=== PATIENT | female | born 1950 | race Caucasian/White ===

== ENCOUNTER 2018-10-12 19:12 | Emergency (ER) | payer OTHER, MEDICARE ==
[~2018-10-12] VITALS: Ht 165.1 cm; Wt 67.6 kg
[2018-10-12 20:12] LABS: ABSOLUTE NEUTROPHILS 5.2 thou/uL (1.4-8.2); BASOPHILS 0.7 % (0.0-2.0); EOSINOPHILS 2.2 % (0.0-3.0); HEMATOCRIT 43.3 % (37.0-47.0); HEMOGLOBIN 14.9 gm/dL (12.0-15.0); LYMPHOCYTES 15.6 % (24.0-44.0); MCH 31.6 pg (26.0-34.0); MCHC 34.5 g/dL (28.0-37.0); MCV 91.6 fL (80.0-100.0); MONOCYTES 7.8 % (1.0-8.0); PLATELET COUNT 279 thou/uL (150-400); POLYS 73.7 % (36.0-66.0); RBC 4.73 mil/uL (4.20-5.00); RDW 13.1 % (10.5-14.5); WBC 7.1 thou/uL (4.0-11.0)
[2018-10-12 20:12] LABS: URINE BILIRUBIN NEGATIVE (Negative); URINE BLOOD NEGATIVE (Negative); URINE CLARITY CLEAR; URINE COLOR YELLOW; URINE GLUCOSE-RANDOM* NEGATIVE (Negative); URINE KETONES TRACE (Negative); URINE LEUKOCYTES 1+ (Negative); URINE NITRITE NEGATIVE (Negative); URINE PROTEIN (DIPSTICK) NEGATIVE (Negative); URINE UROBILINOGEN 0.2 E.U./dl (0.2-1.0)
[2018-10-12 20:20] LABS: BACTERIA 1-9 Few /HPF (None Seen); MUCUS 0-3 Light strn/LPF (None Seen); SQUAMOUS 0-3 Few /LPF (0-3); URINE RBC None Seen /HPF (0-2); URINE WBC 6-15 Few /HPF (0-5)
[2018-10-12 20:21] LABS: CASTS None Seen /LPF (None Seen); CRYSTALS None Seen /LPF (None Seen)
[2018-10-12 20:31] LABS: CALCIUM 9.6 mg/dL (8.5-10.1)
[2018-10-12 20:37] LABS: ALBUMIN 4.1 g/dL (3.4-5.0); DIRECT BILIRUBIN 0.1 mg/dL (<0.1-0.3); TOTAL BILIRUBIN 1.1 mg/dL (<0.1-1.0); TOTAL PROTEIN 7.8 g/dL (6.4-8.2)
[2018-10-12 20:39] LABS: POTASSIUM 3.8 mmol/L (3.5-5.1)
[2018-10-12] MEDS ORDERED: KEFLEX500 M1 PO (21:44)
[2018-10-12] MEDS ORDERED: ONDANSETRON HCL4 M2 PO (21:44)
[2018-10-12] MEDS ORDERED: LISINOPRIL-HCT1 EACH PO (21:49)
[2018-10-12] MEDS ORDERED: OMEPRAZOLE40 MG PO (21:50)
[2018-10-12 21:52] VITALS: BP 137/79
== END 2018-10-12 22:05 | disposition home or self-care (01) ==
LOC: ER 19:12
PROVIDERS: Nurse Practitioner
DX: N39.0 Urinary tract infection, site not specified (principal); R19.7 Diarrhea, unspecified; I10 Essential (primary) hypertension; K21.9 Gastro-esophageal reflux disease without esophagitis

== ENCOUNTER 2019-03-17 00:57 | Emergency (ER) | payer OTHER, MEDICARE ==
[~2019-03-17] VITALS: Ht 165.1 cm; Wt 63.5 kg
[~2019-03-17 00:57] MED LIST: KEFLEX500 M1 PO; LISINOPRIL-HCT1 EACH PO; OMEPRAZOLE40 MG PO; ONDANSETRON HCL4 M2 PO
[2019-03-17 01:37] LABS: ABSOLUTE NEUTROPHILS 6.9 thou/uL (1.4-8.2); BASOPHILS 0.4 % (0.0-2.0); EOSINOPHILS 0.1 % (0.0-3.0); HEMATOCRIT 46.2 % (37.0-47.0); HEMOGLOBIN 15.6 gm/dL (12.0-15.0); LYMPHOCYTES 10.8 % (24.0-44.0); MCH 31.6 pg (26.0-34.0); MCHC 33.8 g/dL (28.0-37.0); MCV 93.4 fL (80.0-100.0); MONOCYTES 6.8 % (1.0-8.0); PLATELET COUNT 319 thou/uL (150-400); POLYS 81.9 % (36.0-66.0); RBC 4.94 mil/uL (4.20-5.00); RDW 12.7 % (10.5-14.5); WBC 8.4 thou/uL (4.0-11.0)
[2019-03-17 01:52] LABS: CALCIUM 10.3 mg/dL (8.5-10.1); CREATININE 1.2 mg/dL (0.6-1.0); POTASSIUM 3.7 mmol/L (3.5-5.1)
[2019-03-17 01:57] LABS: TOTAL BILIRUBIN 1.6 mg/dL (<0.1-1.0)
[2019-03-17 06:36] VITALS: BP 138/78
== END 2019-03-17 06:37 | disposition short-term general hospital (02) ==
LOC: ER 00:57
PROVIDERS: Emergency Medicine
DX: K56.609 Unspecified intestinal obstruction, unspecified as to partial versus complete obstruction (principal); R11.10 Vomiting, unspecified; I10 Essential (primary) hypertension; K21.9 Gastro-esophageal reflux disease without esophagitis; Z85.41 Personal history of malignant neoplasm of cervix uteri

== ENCOUNTER 2020-03-08 09:41 | Emergency (ER) | payer OTHER, MEDICARE ==
[~2020-03-08] VITALS: Ht 162.6 cm; Wt 61.2 kg
[2020-03-08] MEDS ORDERED: MONTELUKAST SODI4 M1 PO (09:53)
--- NOTE | 2020-03-08 09:53 | EKG ---
[facility] [place] [address] ELECTROCARDIOGRAM REPORT Name: XU PATINO Room #: [facility].#: [id number] Admission: Attend Phys: Discharge: Date of : 50 Report #: [id number] THIS REPORT FOR: cc: Sho Flores MD, Carrie W. MD Santiago, Patrick MD [facility] ~ THIS REPORT FOR: //name// [facility] ED Test Date: 2020-03-08 Test Time: 09:43:47 Pat Name: XU PATINO Department: Room: Gender: F Biomedical Equipment Specialist: SILVANA : 1950 Requested By: Mayo Liao Order Number: [id number] MD: Miky Cooper Measurements Intervals Homer Rate: 60 P: 17 MA: 175 QRS: 4 QRSD: 82 T: 35 QT: 408 QTc: 408 Interpretive Statements Sinus rhythm Anteroseptal infarct, age indeterminate No previous ECG available for comparison Electronically Signed On 03-08-2020 9:52:50 CIRCULATION CLERK by Miky Cooper [email or web address] <ELECTRONICALLY SIGNED> By: Miky Cooper MD, FAC 03/08/20 0952 0943 2 Miky Cooper MD, FACC /EPI
[2020-03-08 10:23] LABS: ABSOLUTE NEUTROPHILS 5.9 thou/uL (1.4-8.2); BASOPHILS 0.5 % (0.0-2.0); EOSINOPHILS 0.7 % (0.0-3.0); HEMATOCRIT 39.3 % (37.0-47.0); HEMOGLOBIN 13.4 gm/dL (12.0-15.0); LYMPHOCYTES 11.3 % (24.0-44.0); MCHC 34.2 g/dL (28.0-37.0); MCV 93.6 fL (80.0-100.0); MONOCYTES 6.1 % (1.0-8.0); PLATELET COUNT 302 thou/uL (150-400); POLYS 81.4 % (36.0-66.0); RBC 4.19 mil/uL (4.20-5.00); RDW 12.5 % (10.5-14.5); WBC 7.3 thou/uL (4.0-11.0)
[2020-03-08 10:36] LABS: ANION GAP 12 mmol/L (7-16); BUN 19 mg/dL (7-18); CALCIUM 8.9 mg/dL (8.5-10.1); CHLORIDE 104 mmol/L (98-107); CO2 25 mmol/L (21-32); CREATININE 1.1 mg/dL (0.6-1.0); GLUCOSE 128 mg/dL (74-106); POTASSIUM 4.2 mmol/L (3.5-5.1); SODIUM 141 mmol/L (136-145)
[2020-03-08 10:47] LABS: ALBUMIN 3.8 g/dL (3.4-5.0); LIPASE 141 U/L (73-393); SGOT 22 U/L (15-37); SGPT 22 U/L (30-65); TOTAL BILIRUBIN 0.8 mg/dL (0.2-1.0); TOTAL PROTEIN 7.4 g/dL (6.4-8.2); TROPONIN-I <0.06 ng/mL (<0.06)
[2020-03-08 14:49] VITALS: BP 127/66
== END 2020-03-08 14:50 | disposition home or self-care (01) ==
LOC: ER 09:41
PROVIDERS: Emergency Medicine
DX: R07.89 Other chest pain (principal); K80.20 Calculus of gallbladder without cholecystitis without obstruction; I10 Essential (primary) hypertension; K21.9 Gastro-esophageal reflux disease without esophagitis; Z79.899 Other long term (current) drug therapy

== ENCOUNTER 2020-03-23 18:50 | Inpatient (IN) | payer OTHER, MEDICARE ==
[~2020-03-23] VITALS: Ht 162.6 cm; Wt 62.0 kg
--- NOTE | ~2020-03-23 | O ---
[facility] [place] [address] OPERATIVE REPORT Name: XU PATINO Room #: 441-P ADM IN M.R.#: [id number] Admission: 03/23/20 Attend Phys: Bucky Donahue MD Discharge: Date of : 50 Report #: [id number] THIS REPORT FOR: cc: Sho Flores MD,Mesfin Victor MD, MD ~ CC: Sho Donahue DATE OF SERVICE: 03/26/2020 PREOPERATIVE DIAGNOSES: Gallstone pancreatitis. POSTOPERATIVE DIAGNOSES: Gallstone pancreatitis. OPERATION: Laparoscopic cholecystectomy. SURGEON: Mesfin Nicholson MD ANESTHESIA: General. ESTIMATED BLOOD LOSS: 10 mL. SPECIMEN: Gallbladder. DESCRIPTION OF PROCEDURE: After informed consent was obtained, the patient was brought to the operating room and placed supine. SCDs were placed and working, preoperative antibiotics were administered, general anesthesia was induced. The abdomen was prepped and draped in the usual sterile fashion. A 10 mm incision was made below the umbilicus. Fascia was incised and a trocar was placed. Pneumoperitoneum was established. Three right upper quadrant 5 mm ports were placed. Gallbladder was grasped at the fundus and retracted cephalad. Infundibulum was grasped and retracted laterally. I dissected out the cystic duct and cystic artery. I dissected out the cystic plate. The cystic duct and artery were clipped and ligated leaving 2 clips on the remaining duct and one on the remaining artery. Gallbladder was then taken off the liver bed with electrocautery. It was placed into an Endopouch and removed. The fascia was then closed with a [id number] 0 Vicryl. Skin was closed with 4-0 Monocryl. Incisions were sealed with Dermabond. COMPLICATIONS: None. [facility] [address] [place] [address] OPERATIVE REPORT Name: XU PATINO Room #: 441-P [facility]#: [id number] Admission: 03/23/20 Attend Phys: Bucky Donahue MD Discharge: Date of : 50 Report #: [id number] DISPOSITION: The patient was taken to recovery in satisfactory condition. By: 1351 1415 Mesfin Nicholson MD /nt
[~2020-03-23 18:50] MED LIST changes: +MONTELUKAST SODI4 M1 PO
[2020-03-23 19:05] VITALS: BP 125/53
[2020-03-23 20:38] LABS: CALCIUM 9.7 mg/dL (8.5-10.1); CREATININE 1.7 mg/dL (0.6-1.0); POTASSIUM 3.6 mmol/L (3.5-5.1)
[2020-03-23 20:50] LABS: ALBUMIN 4.3 g/dL (3.4-5.0); TOTAL PROTEIN 8.6 g/dL (6.4-8.2)
[2020-03-23 21:10] LABS: HEMATOCRIT 41.1 % (37.0-47.0); HEMOGLOBIN 13.7 gm/dL (12.0-15.0); MCH 31.9 pg (26.0-34.0); MCHC 33.4 g/dL (28.0-37.0); MCV 95.6 fL (80.0-100.0); PLATELET COUNT 320 thou/uL (150-400); RDW 13.2 % (10.5-14.5); WBC 15.5 thou/uL (4.0-11.0)
[2020-03-23 21:57] LABS: ABSOLUTE NEUTROPHILS 14.3 thou/uL (1.4-8.2); ANISOCYTOSIS 1+
[2020-03-23 22:03] LABS: URINE BILIRUBIN 2+ (Negative); URINE BLOOD NEGATIVE (Negative); URINE CLARITY CLEAR; URINE COLOR YELLOW; URINE GLUCOSE-RANDOM* NEGATIVE (Negative); URINE KETONES NEGATIVE (Negative); URINE LEUKOCYTES-REFLEX NEGATIVE (Negative); URINE NITRITE-REFLEX NEGATIVE (Negative); URINE PROTEIN (DIPSTICK) TRACE (Negative); URINE SPECIFIC GRAVITY 1.015 (1.005-1.035); URINE UROBILINOGEN 0.2 E.U./dl (0.2-1.0)
[2020-03-24] MEDS ORDERED: MULTIVITAMINS1 EAC7 PO (00:43)
[2020-03-24] MEDS ORDERED: VIT B 12 PO (00:43)
[2020-03-24 01:22] VITALS: BP 126/72
[2020-03-24 02:14] VITALS: BP 130/81
--- NOTE | 2020-03-24 04:55 | NUR ---
PT WAS ADMITTED TO THE UNIT FROM THE ER IN A STABLE CONDITION.PT C/O GEN ABD PAIN,MANAGED WITH MED.ADMISSION EDUCATION,HX AND ASSESSMENT COMPLETED.PT NPO SINCE ADMIT.PT CONT WITH IVF AND IV ABX ORDERED.PT SLEEPING ON HER BED AT THIS TIME.CALL LIGHT WITHIN REACH.
[2020-03-24 05:39] LABS: HEMATOCRIT 39.8 % (37.0-47.0); HEMOGLOBIN 13.6 gm/dL (12.0-15.0); MCH 32.6 pg (26.0-34.0); MCHC 34.1 g/dL (28.0-37.0); MCV 95.5 fL (80.0-100.0); RBC 4.16 mil/uL (4.20-5.00); RDW 13.3 % (10.5-14.5); WBC 8.1 thou/uL (4.0-11.0)
[2020-03-24 06:02] LABS: ALBUMIN 3.4 g/dL (3.4-5.0); CALCIUM 7.9 mg/dL (8.5-10.1); CREATININE 2.1 mg/dL (0.6-1.0); POTASSIUM 3.9 mmol/L (3.5-5.1); TOTAL BILIRUBIN 7.1 mg/dL (0.2-1.0)
[2020-03-24 07:53] VITALS: BP 122/80
--- NOTE | 2020-03-24 08:40 | NUR ---
ASSESSMENT: CM REVIEWED CHART. PT IS ADMITTED DUE TO GALLSTONE/PANCREATITIS. PT REPORTS LIVING IN A HOUSE WITH HER . PT REPORTS 2-3 STEPS TO ENTER AND HAS SOMETHING TO HOLD ONTO WHEN ENTERING THE HOME BUT NO HANDRAIL. PT REPORTS ONCE INSIDE SHE HAS STEPS TO THE UPPER LEVEL BUT REPORTS SHE CAN FULLY LIVE ON THE MAIN LEVEL IF NEEDED. PT REPORTS SHE HAS A CANE AT HOME SHE USES OCCASIONALLY. PT REPORTS NO HX OF HH OR SNF. PT IS ON IX ANBX AND DR. GUPTA IS CONSULTED. CM WILL COTNINUE TO FOLLOW TO ASSIST NEEDED.
--- NOTE | 2020-03-24 10:11 | NUR ---
ASSUMED CARE AT 0700. PATIENT IS ALERT AND ORIENTED X4. 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 LUNGS ARE CLEAR. 02 AT 2L PER N/C. 02 SAT 91-92%. ABD IS SOFT WITH BSX4. PATIENT HAVING SEVERE ABD PAIN. DR. NAILS HERE TO SEE PATIENT. PLAN FOR MRCP LATER TODAY. GI CONSULTED. PATIENT REMAINS NPO. FALL AND SAFETY PROTOCOLS IN PLACE. C/O ABD PAIN. MEDICATED WITH PRN PAIN MED , AND ANTIEMETIC. AT BEDSIDE. IV FLUIDS OF NS INFUSING AT 125CC/HR PER RAC IV. IV SITE WITHOUT REDNESS OR SWELLING. PATIENT CONTINUES ON IV ABT AND IS TOLERATING THEM WITHOUT ADVERSE AFFECTS. WILL CONTINUE TO MONITER.
[2020-03-24 16:59] VITALS: BP 128/75
[2020-03-24 19:29] VITALS: BP 105/67
[2020-03-25 03:38] LABS: HEMATOCRIT 36.4 % (37.0-47.0); HEMOGLOBIN 12.3 gm/dL (12.0-15.0); MCHC 33.6 g/dL (28.0-37.0); MCV 95.1 fL (80.0-100.0); RBC 3.83 mil/uL (4.20-5.00); RDW 13.3 % (10.5-14.5); WBC 9.2 thou/uL (4.0-11.0)
[2020-03-25 03:42] VITALS: BP 104/57
[2020-03-25 04:14] LABS: ALBUMIN 2.6 g/dL (3.4-5.0); CALCIUM 6.6 mg/dL (8.5-10.1); CREATININE 1.3 mg/dL (0.6-1.0); POTASSIUM 3.3 mmol/L (3.5-5.1); TOTAL BILIRUBIN 3.5 mg/dL (0.2-1.0); TOTAL PROTEIN 5.9 g/dL (6.4-8.2)
[2020-03-25 07:00] VITALS: BP 110/65
--- NOTE | 2020-03-25 07:50 | NUR ---
ASSUMED PT CARE AT 1900.PT WAS IN PAIN AFTER SHIFT CHANGE,PAIN MED GIVEN.PT UP WITH SBA TO THE BSC.PT ON CLEAR LIQUIDS PER REPORT,SERGIO WELL.PT HAS BEEN NPO SINCE MN.PT CONT ON O2 @2L/NC.REPORT TO AM NURSE.
--- NOTE | 2020-03-25 14:05 | NUR ---
ASSUMED CARE OF PT AT 0700. PT IS A&OX4 AND VITAL SIGNS ARE STABLE. PT REPORTS INTERMITTENT ABDOMINAL PAIN THAT IS SHARP, BUT IS OVERALL WELL CONTROLLED ON CURRENT MEDICATIONS. ORDERS FOR ERCP THIS SHIFT. PT RETURNED TO UNIT FOLLOWING PROCEDURE AT 1300. PT RESTING IN BED WITH SPOUSE AT THE BEDSIDE. PT REPORTS SIGNIFICANT RELIEF FOLLOWING PROCEDURE. PT ON CLEAR LIQUIDS AT THIS TIME AND TOLERATING WELL. LOW POTASSIUM THIS SHIFT, IV REPLACEMENT ORDERED AT THIS TIME. PT ON 3L O2 WITH SATS AROUND 93%. FALL PRECAUTIONS IN PLACE AND NURSING WILL CONTINUE TO MONITOR.
--- NOTE | 2020-03-25 15:26 | NUR ---
ON-GOING ASSESSMENT: CM REVIEWED CHART AND SPOKE WITH ATTENDING. PT HAD ERCP TODAY. PHYSICAL THEARPY ATTEMPTED TO MEET WITH PATIENT BUT SHE IS STILL LOOPY FROM PROCEDURE AND THEY WILL FOLLOW UP TOMORROW. PT IS FROM HOME WITH HER WHERE SHE WAS INDEPENDENT PRIOR TO ADMISSION. PT DOES NOT ANTICIPATE HAVING ANY NEEDS AT DISCHARGE. CM WILL CONTINUE TO FOLLOW.
[2020-03-25 20:00] VITALS: BP 77/33
[2020-03-26] VITALS (9 sets, daily range): BP systolic 100–125; BP diastolic 56–86
--- NOTE | 2020-03-26 04:13 | NUR ---
PT DENID N/V SO FAR.PT UP WITH SBA TO BSC.PT RATED PAIN AT 2,REF MED.PT'S URINE DRK YELLOW ,PT ENCOURAGED TO INCREASE PO FLUIDS.PT CONT ON 2L/NC.PT NPO SINCE MN FOR LAP GRETEL LATER IN THE DAY.PT ABLE TO MAKE HER NEEDS KNOWN.CALL LIGHT WITHIN REACH.
[2020-03-26 05:43] LABS: HEMATOCRIT 31.5 % (37.0-47.0); HEMOGLOBIN 10.6 gm/dL (12.0-15.0); MCH 32.3 pg (26.0-34.0); MCHC 33.6 g/dL (28.0-37.0); MCV 96.2 fL (80.0-100.0); RBC 3.28 mil/uL (4.20-5.00); RDW 13.3 % (10.5-14.5); WBC 8.6 thou/uL (4.0-11.0)
[2020-03-26 06:23] LABS: ALBUMIN 2.2 g/dL (3.4-5.0); CALCIUM 6.4 mg/dL (8.5-10.1); POTASSIUM 3.1 mmol/L (3.5-5.1); TOTAL BILIRUBIN 2.8 mg/dL (0.2-1.0); TOTAL PROTEIN 5.6 g/dL (6.4-8.2)
--- NOTE | 2020-03-26 11:05 | NUR ---
ASSUMED CARE AT 0700. PT IS A&O X4. PT HAS IV ON R. AC AND SHOWS SIGNS OF REDNESS BUT NO SWELLING OR PAIN. PT SAID THAT IT WAS ALWAYS LIKE THIS AND SHE DOES NOT HAVE ANY PAIN AND STILL GETTING MEDICATION THROUGH THE IV. PT DIDNT COMPLAIN OF PAIN AROUND 7 AM BUT IS NOW (11 AM) ASKING FOR PAIN MEDICAITON. PT HAS A SOFT
--- NOTE | 2020-03-26 17:21 | NUR ---
pt came back to surgery around 1500. pt denies pain, n/v. pt lap sites were bleeding and put bandage and transparent dressing over site. will continue to monitor for bleeding.
--- NOTE | 2020-03-27 00:25 | NUR ---
PATIENT ALERT AND ORIENTED X4. UP TO BSC WITH SBA. IVF INFUSING W/O COMPLICATION. INCISION TO RIGHT LOWER ABD IS DRAINING SEROSANGUINOUS FLUID AT TIMES. DRESSING NO SATURATED AT TIME OF NOTE. RT STATED THAT HER OXYGEN LEVEL PER NASAL CANNULA WAS INCREASED TO 6 LITERS AT SHIFT CHANGE. THIS NURSE RECHECKED 02 SAT AT 2200 WHICH WAS 94% ON 6LNC. PATIENT RESTING COMFORTABLY WITH NO SOA NOTED. WILL MONITOR.
--- NOTE | 2020-03-27 04:54 | NUR ---
PATIENT HAS BEEN UP TO BSC WITH SBA. MODERATE BROWN LIQUID STOOL. DRESSING REPLACED TO RIGHT LOWER INCISION ON ABDOMEN DUE TO SEROSANG. DRAINAGE. WILL MONITOR. RESTING QUIETLY WITH 02NC 6L.
[2020-03-27 07:23] VITALS: BP 103/74
[2020-03-27 10:22] LABS: HEMATOCRIT 27.1 % (37.0-47.0); HEMOGLOBIN 9.2 gm/dL (12.0-15.0); MCH 32.5 pg (26.0-34.0); MCV 95.6 fL (80.0-100.0); PLATELET COUNT 225 thou/uL (150-400); RBC 2.84 mil/uL (4.20-5.00); RDW 13.5 % (10.5-14.5); WBC 7.6 thou/uL (4.0-11.0)
[2020-03-27 10:40] LABS: CALCIUM 6.7 mg/dL (8.5-10.1); TOTAL BILIRUBIN 1.2 mg/dL (0.2-1.0); TOTAL PROTEIN 5.6 g/dL (6.4-8.2)
--- NOTE | 2020-03-27 11:33 | NUR ---
ASSUMED CARE AT 0700. PT IS A&O X4. PT DENIES ANY PAIN, N/V/D. PT HAD A BM THIS AM. PT WAS ON 6 LITERS OF OXYGEN BUT AFTER WORKING WITH RT, SHE IS NOW ON 2 L OF OXYGEN AND TOLERATING WELL AT 94%. VSS. THE LAP SITE ON ABD ON THE LLQ HAS BEEN BLEEDING. NOT ALOT OF BLOOD BUT GETS SATURATED WITH GAUZE AND TRANSPARENT DRESSING AFTER 4 HOURS. WILL CONTINUE TO MONITOR AND CHANGE THE GAUZE EVERY 4 HOURS UNTIL BLEEDING IS UNCONTROLLED. SCD HOSE ARE IN PLACE. PT HAS BEEN BRUISES FROM IV RIGHT AC; HOWEVER PT SAYS THAT THE BRUISES HAVE BEEN GOING DOWN SINCE YESTERDAY. IV ON LEFT FOREARM HAS BEEN D/C DUE TO FLUIDS COMING OUT OF IV. WILL ADMINISTER NEW IV FOR PATIENT AND WILL CONTINUE TO MONITOR. ADEQUATE NUTRITIION. PT HAS DRY NONPRODUCTIVE COUGH AND PT SAYS THAT IS NORMAL IT RELATED TO HER ALLERGIES.
[2020-03-27 12:17] LABS: ABSOLUTE NEUTROPHILS 6.5 thou/uL (1.4-8.2)
[2020-03-27 12:19] LABS: ANISOCYTOSIS SLIGHT
[2020-03-27 15:08] VITALS: BP 120/62
[2020-03-27 19:10] VITALS: BP 124/73
[2020-03-28 04:30] VITALS: BP 113/76
--- NOTE | 2020-03-28 05:23 | NUR ---
PATIENT ALERT AND ORIENTED X4. HAS BEEN NPO SINCE 03/27/20 AT 23:59. 2LNC PER ORDER. PLEASANT AND COOPERATIVE. WILL HAVE AN ULTRA SOUND OF ABDOMEN TODAY. DRESSING TO ABDOMEN ON RIGHT SIDE DRAINING SEROSANG. FLUID - CHANGED X1 DURING THE NIGHT. TEMP OF 99.5 DURING THE NIGHT. MEDICATED FOR PAIN X2. WILL MONITOR.
[2020-03-28 05:36] LABS: HEMATOCRIT 28.8 % (37.0-47.0); HEMOGLOBIN 9.6 gm/dL (12.0-15.0); MCH 31.8 pg (26.0-34.0); MCHC 33.5 g/dL (28.0-37.0); MCV 94.9 fL (80.0-100.0); RBC 3.03 mil/uL (4.20-5.00); RDW 13.7 % (10.5-14.5); WBC 9.7 thou/uL (4.0-11.0)
[2020-03-28 05:57] LABS: CALCIUM 7.6 mg/dL (8.5-10.1)
[2020-03-28 06:04] LABS: POTASSIUM 2.7 mmol/L (3.5-5.1)
[2020-03-28 07:06] VITALS: BP 117/61
[2020-03-28] MEDS ORDERED: HYDROCODON-ACE1 EAC7 PO (08:52)
--- NOTE | 2020-03-28 09:15 | NUR ---
ORDERS FOR EVAL AND TREAT. Pt NOW POST SHRUTI MAJANO. SPOKE WITH Pt WHO STATE SHE IS HAVING NO DIFFICULTY WITH MOBILITY. OBSERVERED HER STAND AND AMBULATE IN ROOM SAFELY. Pt DECLINING FORMAL P.T. EVAL BUT APPEARS SAFE FOR HOME
--- NOTE | 2020-03-28 09:58 | NUR ---
on-going assessment: CM REVIEWED CHART AND SPOKE WITH ATTENDING. PT HAS ORDERS TO DISCHARGE HOME TODAY WITH NO NEEDS. PT HAS NO NEEDS FROM CM AND LIVES AT HOME WITH .
--- NOTE | 2020-03-28 12:05 | NUR ---
ASSUMED CARE AT 0700. PT IS A&0 X4. PT IS STILL COMPLAINING OF PAIN IN ABD WHEN MOVING AROUND. PT IS WALKING AROUND IN THE ROOM TO HELP RELIEF SOME PAIN. PT HAS NO IV AND DID NOT WANT IV TEAM TO COME IN AND GIVE HER IV. SPOKE WITH DOCTOR AND DOCTOR SUSY HAS OKAY FOR PO FOR POTASSIUM. POTASSIUM LEVEL WAS 2.7 AND WAS GIVEN PO POTASSIUM PILL. CALL LIGHT WITHIN REACH. PT IS TRYING TO WEAN OFF OXYGEN BEFORE SHE CAN BE D/C. PT DENIES ANY N/V/D. PT DOES NOT HAVE A FEVER DURING SHIFT. REGULAR DIET. DID A US IN THE AM AND DIDNT FIND ANYTHING. DISTENDED ABD. WILL CONTINUE TO MONITOR FOR DRESSING THAT WAS BLEEDING.
[2020-03-28 15:13] VITALS: BP 135/82
[2020-03-28 19:03] VITALS: BP 122/73
[2020-03-29 03:52] VITALS: BP 129/73
--- NOTE | 2020-03-29 03:58 | NUR ---
ASSESSED AT START OF SHIFT PT A&OX4. HAD 1 HUGE LIQUID STOOL. C/O NAUSEA AND VOMITING. ZOFRAN GIVEN 1 TIME EMESIS NOT. ABD DRESSING CHANGED AND INTACT. PT C/O PAIN 10/13 MANAGED WITH PO HYDROCODONE AFEBRILE THIS SHIFT. UP TO THE BATHROOM. FALL EDUCATION PROVIDED. CALL LIGHT AT REACH AND WILL CONT TO MONITOR.
[2020-03-29 05:42] LABS: HEMATOCRIT 26.4 % (37.0-47.0); HEMOGLOBIN 8.9 gm/dL (12.0-15.0); MCH 32.1 pg (26.0-34.0); MCHC 33.9 g/dL (28.0-37.0); MCV 94.9 fL (80.0-100.0); RBC 2.78 mil/uL (4.20-5.00); RDW 13.7 % (10.5-14.5); WBC 9.9 thou/uL (4.0-11.0)
[2020-03-29 05:57] LABS: CALCIUM 7.6 mg/dL (8.5-10.1); CREATININE 0.9 mg/dL (0.6-1.0)
[2020-03-29 06:12] LABS: POTASSIUM 2.9 mmol/L (3.5-5.1)
[2020-03-29 07:10] VITALS: BP 139/75
--- NOTE | 2020-03-29 13:44 | NUR ---
ON-GOING ASSESSMENT: CM REVIEWED CHART. PT IS STILL HAVING A FEVER AND IS ON 1-2L OF OXYGEN. PT ON ANTIBIOTIC AND NOT STABLE FOR DISCHARGE AT THIS TIME. POSSIBLE DISCHARGE HOME TOMORROW IF PT IMPROVES. CM WILL CONTINUE TO FOLLOW TO ASSIST NEEDED.
[2020-03-29 15:30] VITALS: BP 124/72
--- NOTE | 2020-03-29 16:54 | NUR ---
ASSUMED PT CARE THIS AM. PT HAS HAD A TEMPERATURE, GIVEN TYLENOL FOR TEMP, BUT IT CONTINUES TO REBOUND UPWARDS. MADE AWARE AND ORDERED LABS AND FLUIDS. PT AMBULATORY TO RESTROOM. LAP SITE DRESSINGS CHANGED THIS AM DUE TO SEROUS DRAINAGE. PT TOOK MEDS WITHOUT COMPLAINT. COMPLAINING OF NO PAIN DURING THE SHIFT, JUST ACHING IN THE STOMACH. REPORTED NAUSEA, GIVEN ZOFRAN AND RESPONDED WELL. PT HAS POOR APPETITE DURING THE SHIFT, ENCOURAGED TO DRINK FLUIDS.
[2020-03-29 19:26] VITALS: BP 142/83
[2020-03-30 05:08] VITALS: BP 109/60
--- NOTE | 2020-03-30 05:23 | NUR ---
PT CONTINUES TO STATE SHE DOES NOT FEEL THAT WELL. SHE APPEARS TO BE IN SOME MODERATE DISTRESS. ABDOMINAL LAP SITE TO RLQ LEAKING SOME YELLOWISH OUTPUT. CLEAN DRAIN SPONGE APPLIED AT THE START OF SHIFT. PT CONTINUES TO HAVE FEVER AND NAUSEA. SHE IS AMBULATING STEADILY TO THE BATHROOM, SHE IS ALSO USING I/S INTERMITTENTLY. SHE C/O GENERALISED ABDOMINAL PAIN WELL SWELLING/EDEMA.SHE HOLDS PILLOW ON THE TUMMY TO HELP EASE PAIN.RATES PAIN AT AROUND 6/10. SHE HAS BEEN TAKING POPSICLE AND SWAZI ICE. IVF INFUSING VIA RFA. NO VOMITING NOTED. CONTINUES ON /1.5L AND NEEDS IT TO KEEP SATS>90%.WILL CONTINUE WITH POC TILL E0S.
[2020-03-30 06:00] LABS: HEMATOCRIT 25.2 % (37.0-47.0); HEMOGLOBIN 8.6 gm/dL (12.0-15.0); MCH 31.9 pg (26.0-34.0); MCV 93.9 fL (80.0-100.0); RBC 2.69 mil/uL (4.20-5.00); RDW 13.6 % (10.5-14.5); WBC 12.6 thou/uL (4.0-11.0)
[2020-03-30 06:18] LABS: CALCIUM 7.8 mg/dL (8.5-10.1); CREATININE 0.8 mg/dL (0.6-1.0); POTASSIUM 3.3 mmol/L (3.5-5.1)
[2020-03-30 09:13] VITALS: BP 110/67
--- NOTE | 2020-03-30 10:36 | P ---
[facility] [place] [address] PROCEDURE REPORT Name: XU PATINO Room #: 441-P ADM IN .R.#: [id number] Admission: 03/23/20 Attend Phys: Bucky Donahue MD Discharge: Date of : 50 Report #: [id number] THIS REPORT FOR: cc: Sho Flores MD, Carrie W. MD McElhinney, Christian C. MD ~ CC: Sho Donahue MD DATE OF SERVICE: 03/25/2020 PROCEDURE PERFORMED: ERCP with sphincterotomy, sludge removal and balloon sweeps. HISTORY OF PRESENT ILLNESS: The patient is a 69-year-old female with abdominal pain, elevated liver function test and gallstone pancreatitis, underwent imaging initially with an ultrasound of the abdomen on the that showed cholelithiasis with tenderness over the gallbladder. The patient has been on IV antibiotics. Intrahepatic common bile duct was dilated at 9 mm. A MRCP was performed yesterday showing changes consistent with pancreatitis. No evidence of choledocholithiasis, cholelithiasis again noted. Her total bilirubin on admission was 9.0. It has now dropped to 3.5. Her liver function tests are trending down. Her lipase has improved, which is now 1726. Her white count is normal at this time, it was elevated at 15.5 on admission. Again, she has been on IV Zosyn. Her COVID test was negative. I had a long discussion with the patient today regarding her symptoms and workup to date. Agree with gallstone pancreatitis likely source or gallstones likely etiology of pancreatitis, even though there was no obvious stone on MRCP. Her bilirubin remains elevated and I would consider proceeding with ERCP for further evaluation as well as sphincterotomy. I explained the potential risks and benefits and she understood. DESCRIPTION OF PROCEDURE: The risks and benefits of the procedure were explained to the patient, those risks including but not limited to bleeding, perforation and the risk of sedation as well as the potential risk for post-ERCP pancreatitis. The patient understood these risks and gave informed consent. The procedure was performed in the Interventional Radiology suite under general anesthesia. The patient is on IV Zosyn already on a scheduled basis. A 50 mg indomethacin rectal suppository was given prior to the procedure. Next, using a standard Olympus ERCP side-viewing scope, the scope was placed in the patient's mouth and advanced under direct vision through the esophagus, stomach and into the second portion of the duodenum. The major papilla was identified, which was normal in appearance. Next, using a Armando-Cook 0.025 dome tipped sphincterotome catheter, the common bile duct was cannulated and a cholangiogram [address] [address] PROCEDURE REPORT Name: XU PATINO Room #: 441-P [facility]..#: [id number] Admission: 03/23/20 Attend Phys: Bucky Donahue MD Discharge: Date of : 50 Report #: [id number] was obtained. No obvious filling defects were noted. The common bile duct was mildly dilated. The intrahepatic ducts were normal. At this point, a guidewire was advanced into the intrahepatic ducts. Next, a sphincterotomy was performed without difficulty. Next the sphincterotome was removed. When I removed this, a small amount of sludge was removed after sphincterotomy. Next, the catheter was removed and a balloon catheter was advanced over the guidewire. Multiple balloon sweeps were then performed. A small amount of sludge was again noted with balloon sweeps, but no obvious stones. Next, a balloon occlusion cholangiogram was obtained. No filling defects were seen. At this point, the balloon and wire were removed. The scope was then withdrawn and the procedure terminated. The patient tolerated the procedure well. IMPRESSIONS: 1. Mildly dilated common bile duct. No obvious filling defects; however, after sphincterotomy, sludge was removed. 2. Normal intrahepatic ducts. RECOMMENDATIONS: 1. Observe the patient post-procedure. 2. Plan for laparoscopic cholecystectomy in the near future. Thank you for allowing me to participate in her care. <ELECTRONICALLY SIGNED> By: Devin Wellington MD 03/30/20 1036 1208 0815 Devin Wellington MD /nt
--- NOTE | 2020-03-30 13:36 | NUR ---
Nutrition: pt seen for LOS. Admitted with gallstone pancreatitis, choledocholelithiasis. POD 4 Lap choly. Lipase now WNL. Was eating well prior to surgery but since po has been down. Reports nausea. Doing better since started choosing own meals. Still with significant abdominal pain and reports distenstion. S/P CT abdomen/pelvis this am. + BMS. On regular diet, will not restrict further but did review low fat diet post choly with pt-voiced understanding. Weights have been stable. Follow for improved intake. Low risk.
--- NOTE | 2020-03-30 14:01 | NUR ---
ON-GOING ASSESSMENT: CM REVIEWED CHART AND SPOKE WT ATTENDING. PT IS STILL RUNNING A LOW GRADE FEVER AND HAS ELEVATION OF WBC. PT IS NEEDING 1-2 L OF OXYGEN CURRENTLY AND CHEST XRAY ORDERED. PLANS ARE TO KEEP PATIENT UNTIL MEDICALLY STABLE/AFEBRILE AND HOPEFUL TO WEAN OFF OXYGEN. PT LIVES WITH . PT SHOULD HAVE NO NEEDS UPON DISCHARGE IF ABLE TO WEAN OFF OXYGEN.
--- NOTE | 2020-03-30 16:18 | NUR ---
ASSUMED PT CARE THIS AM. PT HAD LOW GRADE TEMP, GIVEN TYLENOL PER EMAR. PT SHOWERED THIS AM. DRESSING ON LOWER RIGHT QUADRANT OF ABDOMEN CHANGED THIS AM AFTER DR OBSERVED. MODERATE AMOUNT OF CLEAR-YELLOW DRAINAGE NOTED. PT REPORTING PAIN MANAGED WELL WITH MEDS. PT SHOWERED INDEPENDENTLY THIS AM, LINENS CHANGED. PT IV PATENT, FLUIDS INFUSING.
[2020-03-30 16:50] VITALS: BP 126/72
[2020-03-30 19:03] VITALS: BP 135/76
[2020-03-30 20:21] VITALS: BP 135/76
[2020-03-31 04:08] VITALS: BP 122/74
--- NOTE | 2020-03-31 06:31 | NUR ---
PT AOX4. PT REPORTS PAIN THROUGHOUT ABDOMEN. PT DENIES SOB WHILE ON 2L O2 VIA NC. PT RECEIVING PRN PO NORCO Q4HR AND PRN IV MORPHINE Q4HR. PT TOLERATING PO INTAKE OF FLUIDS AND REGULAR DIET WITHOUT ISSUE. PT REPORTS NAUSEA WITHOUT EMESIS. PT RECEIVING PRN IV ZOFRAN Q4HR. PT AMBULATING INDEPENDENTLY IN ROOM AND TO BATHROOM, GAIT STEADY. PT OBSERVED SLEEPING WITHOUT O2 VIA NC, O2 SATURATION ASSESSED AT 69% ON ROOM AIR, IMPROVED TO 78% ON 3L, IMPROVED TO 91% ON 4L. PT ENCOURAGED TO MAINTAIN O2 VIA NC, EDUCATION PROVIDED IN REGARDS TO HYPOXIA AND OXYGEN BENEFITS, PT RECEPTIVE TO EDUCATION GIVEN. PT ENCOURAGED TO NOTIFY STAFF FOR ALL NEEDS, CALL LIGHT WITHIN REACH, BED IN LOWEST POSITION, FREQUENT MONITORING WILL CONTINUE.
[2020-03-31 08:20] VITALS: BP 112/70
[2020-03-31 09:08] LABS: BASOPHILS 0.3 % (0.0-2.0); EOSINOPHILS 0.4 % (0.0-3.0); HEMATOCRIT 28.3 % (37.0-47.0); HEMOGLOBIN 9.6 gm/dL (12.0-15.0); LYMPHOCYTES 3.8 % (24.0-44.0); MCH 31.5 pg (26.0-34.0); MCHC 33.8 g/dL (28.0-37.0); MCV 93.4 fL (80.0-100.0); MONOCYTES 6.9 % (1.0-8.0); POLYS 88.6 % (36.0-66.0); RBC 3.03 mil/uL (4.20-5.00); RDW 13.7 % (10.5-14.5); WBC 15.8 thou/uL (4.0-11.0)
[2020-03-31 09:09] LABS: PLATELET COUNT 401 thou/uL (150-400)
[2020-03-31 09:28] LABS: ALBUMIN 1.9 g/dL (3.4-5.0); CREATININE 1.1 mg/dL (0.6-1.0); TOTAL BILIRUBIN 1.1 mg/dL (0.2-1.0); TOTAL PROTEIN 6.2 g/dL (6.4-8.2)
[2020-03-31 09:30] LABS: POTASSIUM 2.9 mmol/L (3.5-5.1)
--- NOTE | 2020-03-31 14:32 | NUR ---
ASSUMED CARE AT 0700. PATIENT IS ALERT AND ORIENTED X4. PATIENT HAS ABD INCISION SITES THAT ARE CLEAN AND DRY. 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 LUNGS ARE DEMINISHED IN THE BASES. 02 AT 2L PER N/C. UP TO THE BATHROOM WITH SBA WITH IV. IVF INFUSING AT 75 CC/HR. PATIENT CONTINUES ON IV ABT. FALL AND SAFETY PROTOCOLS IN PLACE. C/O PAIN IN HER ABD. MEDICATED WITH PRN PAIN MED. CONTINUES TO PROGRESS TOWARDS D/C GOALS. C/O NAUSEA AFTER PO POTASSIUM. MEDICATED WITH PRN ANTIEMETIC. HERE TO VISIT. WILL CONTINUE TO MONITER.
[2020-03-31 16:56] VITALS: BP 127/74
[2020-03-31 20:15] VITALS: BP 130/63
[2020-04-01 02:50] VITALS: BP 137/76
--- NOTE | 2020-04-01 05:11 | NUR ---
PATIENT ALERT AND ORIENTED X4. PLEASANT AND COOPERATIVE. IVF INFUSING W/O COMPLICATION. GIVEN ZOFRAN FOR NAUSEA WITH RELIEF. NO EMESIS. MEDICATED FOR PAIN WITH GOOD RELIEF. TEMP OF 101.1, GIVEN TYLENOL AT 0300. TEMP AT 0405 100.3, TEMP AT 0445 99.5. PATIENT STATES THAT SHE FEELS MUCH BETTER. WILL MONITOR.
[2020-04-01 05:50] LABS: ABSOLUTE NEUTROPHILS 15.1 thou/uL (1.4-8.2); BASOPHILS 0.1 % (0.0-2.0); EOSINOPHILS 0.3 % (0.0-3.0); LYMPHOCYTES 2.4 % (24.0-44.0); MCH 31.5 pg (26.0-34.0); MCHC 33.5 g/dL (28.0-37.0); PLATELET COUNT 331 thou/uL (150-400); POLYS 91.2 % (36.0-66.0); RBC 2.55 mil/uL (4.20-5.00); RDW 13.9 % (10.5-14.5); WBC 16.6 thou/uL (4.0-11.0)
[2020-04-01 05:59] LABS: CALCIUM 7.5 mg/dL (8.5-10.1); CREATININE 0.9 mg/dL (0.6-1.0); MAGNESIUM 1.6 mg/dL (1.8-2.4); POTASSIUM 3.6 mmol/L (3.5-5.1)
--- NOTE | 2020-04-01 06:38 | NUR ---
TEMP THROUGHOUT THE CONTROL ROOM SUPERVISOR. 0300 101.1; 0404 100.3; 0445 99.5; 0637 98.6. PATIENT STATES SHE FEEL BETTER. RESTING QUIETLY.
[2020-04-01 09:14] VITALS: BP 114/78
--- NOTE | 2020-04-01 12:48 | NUR ---
PT CARE ASSUMED AT 0700. A&Ox4. PT STANDING IN ROOM ANXIOUS AND CLOSE TO TEARS BECAUSE HER LEGS WERE SWOLLEN. VITALS MATCHED ANXIETY. PATIENT LAID DOWN IN BED ALEVATED LEGS AND SPOKE CALMLY TOO HER. O2 APPLIED AND DEEP BREATHING ENCOURAGED. WBX ELEVATED AT 16.6, HGB 8.0, MAG 1.6. DR. JAIN INFORMED, ONE TIME LASIX GIVEN. DRESSING CHANGED ONCE IN THE AM WILL CONTINUE TO MONITOR. NO TEMPERATUR NOTED THUS FAR. PT WALKING THE HALLWAYS. NO PAIN STATED. FLUIDS DISCONTINUED. IV PATENT WITH NO REDNESS OR EDEMA. CALL LIGHT IN REACH. PT SHOWERED. WILL CONTINUE TO MONITOR.
--- NOTE | 2020-04-01 15:07 | PATH ---
[facility] [address] [place] [address] PATHOLOGY RPT PROCEDURE Name: AUBREE ELIAS Room #: 441-P [facility] IN M.R.#: [id number] Admission: 03/23/20 Date of : 50 Discharge: Report #: [id number] Path Case #: [id number] [facility] Accession Number: [id number] . 01 Material submitted: . gallbladder - GALLBLADDER . 01 Clinical history: . GALLSTONE PANCREATITIS, CHOLEDOCOLITHIASIS . 02 Diagnosis: Gallbladder, cholecystectomy: - Chronic calculous cholecystitis. - One reactive lymph node (MAP:pit 04/01/2020) QTP 04/01/2020 1432 Local . 02 Electronically signed: . Rashel Colorado MD, Pathologist NPI- [id number] . 01 Gross description: . The specimen is received in formalin labeled "Elias, Aubree, gallbladder" and consists of an intact green lopez and firm gallbladder measuring 9.1 x 2.6 x 2.4 cm. The margin is inked black. Opening reveals a lumen filled with black gallbladder sludge and multiple mulberry brown calculi measuring approximate 4.8 x 4.0 cm in aggregate. The mucosa is green and granular with an average wall thickness of 0.1 cm. No masses are identified. Adjacent the gallbladder neck is a lymph node showing pink muniz cut surfaces. Sales Special Agent sections are submitted in A1. (SDY; 03/30/2020) SYU/SYU 03/30/2020 1019 Local . 02 Pathologist provided ICD-10: K80.10 . 02 CPT . 446147 Specimen Comment: A courtesy copy of this report has been sent to [phone], [phone] Specimen Comment: [phone], Specimen Comment: Report sent to ,DR JAIN / DR ALAS Performed at: [address] [id number] MD Ronnie Can MD Phone: [phone] Performed at: 02 [place] [address] PATHOLOGY RPT PROCEDURE Name: AUBREE ELIAS Room #: 441-P [facility] IN M.R.#: [id number] Admission: 03/23/20 Date of : 50 Discharge: Report #: [id number] Path Case #: [id number] [facility] [address], [place], [place] [id number] MD Odette Patel MD Phone: [phone]
[2020-04-01 15:18] VITALS: BP 182/119
[2020-04-01 15:47] VITALS: BP 135/66
[2020-04-01 19:56] VITALS: BP 123/65
[2020-04-01 21:48] LABS: URINE BILIRUBIN NEGATIVE (Negative); URINE BLOOD 1+ (Negative); URINE CLARITY CLEAR; URINE COLOR YELLOW; URINE GLUCOSE-RANDOM* NEGATIVE (Negative); URINE KETONES NEGATIVE (Negative); URINE LEUKOCYTES-REFLEX NEGATIVE (Negative); URINE NITRITE-REFLEX NEGATIVE (Negative); URINE PROTEIN (DIPSTICK) 1+ (Negative); URINE UROBILINOGEN 0.2 E.U./dl (0.2-1.0)
[2020-04-01 22:04] LABS: CASTS None Seen /LPF (None Seen); CRYSTALS None Seen /LPF (None Seen); SQUAMOUS 4-10 Moderate /LPF (0-3)
[2020-04-01 22:05] LABS: BACTERIA-REFLEX 1-9 Few /HPF (None Seen); URINE RBC 0-2 Rare /HPF (0-2); URINE WBC-REFLEX 0-5 Rare /HPF (0-5)
--- NOTE | 2020-04-01 23:49 | NUR ---
1900 ASSUMED CARE OF PT AFTER BEDSIDE REPORT, 2029 BASELINE ASSESSMENT COMPLETED, SCD'S IN PLACE FALL PRECAUTIONS IN PLACE, WILL CONTINUE TO MONITOR. UA SENT TO LAB PER DR MAYORGA.
[2020-04-02 03:05] LABS: BASOPHILS 0.2 % (0.0-2.0); EOSINOPHILS 0.6 % (0.0-3.0); HEMATOCRIT 22.8 % (37.0-47.0); HEMOGLOBIN 7.7 gm/dL (12.0-15.0); LYMPHOCYTES 4.7 % (24.0-44.0); MCH 31.6 pg (26.0-34.0); MCHC 33.9 g/dL (28.0-37.0); MCV 93.1 fL (80.0-100.0); MONOCYTES 5.7 % (1.0-8.0); PLATELET COUNT 333 thou/uL (150-400); POLYS 88.8 % (36.0-66.0); RBC 2.45 mil/uL (4.20-5.00); RDW 13.8 % (10.5-14.5); WBC 11.3 thou/uL (4.0-11.0)
[2020-04-02 03:06] VITALS: BP 104/58
[2020-04-02 03:16] LABS: ALBUMIN 1.6 g/dL (3.4-5.0); CALCIUM 7.7 mg/dL (8.5-10.1); POTASSIUM 3.3 mmol/L (3.5-5.1); TOTAL BILIRUBIN 0.8 mg/dL (0.2-1.0); TOTAL PROTEIN 5.3 g/dL (6.4-8.2)
[2020-04-02 07:25] VITALS: BP 113/70
[2020-04-02 15:35] VITALS: BP 130/73
--- NOTE | 2020-04-02 17:41 | NUR ---
SALMA FROM [facility] STATED THAT THEY WOULD BE HERE SATURDAY NIGHT TO DO DENISE DOPPLER TO LE'S. PATIENT UP WALKING THE UNIT HALLS NO PAIN OR RESP DISTRESS.
[2020-04-02 19:38] VITALS: BP 126/68
--- NOTE | 2020-04-03 01:50 | NUR ---
04/02/20 1900 assumed care of pt after bedside report and baseline assessment completed, pt is painful at this time and is requesting po painb medication. lap incision areas remain clean and dry, denies n/v at this time, pt encouraged to use IS and to ambulate once pain level has decreased, box breathing technique taught to pt, will reinforce once less painful, scd's in place
[2020-04-03 06:55] VITALS: BP 119/73
[2020-04-03 08:57] LABS: HEMATOCRIT 26.1 % (37.0-47.0); HEMOGLOBIN 8.7 gm/dL (12.0-15.0); MCH 31.1 pg (26.0-34.0); MCHC 33.3 g/dL (28.0-37.0); MCV 93.4 fL (80.0-100.0); RBC 2.8 mil/uL (4.20-5.00); WBC 14.1 thou/uL (4.0-11.0)
[2020-04-03 09:10] LABS: ALBUMIN 1.8 g/dL (3.4-5.0); POTASSIUM 4.3 mmol/L (3.5-5.1); TOTAL BILIRUBIN 0.7 mg/dL (0.2-1.0); TOTAL PROTEIN 5.3 g/dL (6.4-8.2)
--- NOTE | 2020-04-03 14:54 | NUR ---
ASSUMED PT CARE THIS AM. PT VSS, A&OX4. PT COMPLAINS OF PAIN WHEN EATING, RESPONDS WELL TO MEDS PER EMAR. PT STANDBY ASSIST, AMBULATORY TO THE RESTROOM. IV MEDS GIVEN THIS AM, IV PATENT BUT PT COMPLAINED OF PAIN WHEN MEDS WERE GIVEN. PER DR, IV TO BE REMOVED AND PT TO RECEIVE A MIDLINE. IV TEAM PAGED AND AWAITING MIDLINE PLACEMENT. NO IV ANTIBIOTICS ABLE TO BE GIVEN DUE TO NO IV ACCESS. PT EATING WELL. COMPLAINS THAT SHE HAS NOT BEEN ABLE TO REST MUCH OVERNIGHT. HYDRATION ENCOURAGED.
[2020-04-03 16:50] VITALS: BP 147/77
--- NOTE | 2020-04-03 18:24 | NUR ---
CONSULTED TO PLACE A MIDLINE FOR THE PATIENT NEEDING IV ANTIBIOTICS AND FLUIDS. ORDER NOTED. DISCUSSED THE RISKS VS BENIFITS WITH THE PATIENT AND SHE VERBALIZED UNDERSTANDING. A #4F POWER MIDLINE WAS PLACED PER HOSPITAL POLICY IN THE RIGHT UPPER AM. THE 12CM LINE ADVANCED WITHOUT DIFFICULT. LINE SECURED AND RELEASED FOR USE
[2020-04-03 19:08] VITALS: BP 125/74
--- NOTE | 2020-04-03 20:46 | NUR ---
THIS NURSE GAVE INITIAL MEDICATION AT SHIFT CHANGE AND WAS TRANSFERRED TO SICU TO TAKE PATIENTS THERE. THIS PATIENT IS ALERT AND ORIENTED X4. UP ADLIB IN ROOM. DENIES PAIN. 2LNC AT NOC PER PATIENT. NO C/O NAUSEA. RESTING QUIETLY.
[2020-04-04 04:30] VITALS: BP 142/76
[2020-04-04 05:21] LABS: HEMATOCRIT 26.4 % (37.0-47.0); HEMOGLOBIN 8.7 gm/dL (12.0-15.0); MCH 31.1 pg (26.0-34.0); MCHC 32.9 g/dL (28.0-37.0); MCV 94.6 fL (80.0-100.0); RBC 2.79 mil/uL (4.20-5.00); RDW 13.7 % (10.5-14.5); WBC 11.9 thou/uL (4.0-11.0)
[2020-04-04 06:27] LABS: ALBUMIN 1.8 g/dL (3.4-5.0); CALCIUM 8.4 mg/dL (8.5-10.1); MAGNESIUM 1.4 mg/dL (1.8-2.4); POTASSIUM 4.3 mmol/L (3.5-5.1); TOTAL BILIRUBIN 0.5 mg/dL (0.2-1.0); TOTAL PROTEIN 6.1 g/dL (6.4-8.2)
--- NOTE | 2020-04-04 08:21 | NUR ---
PT AMBULATING IN HALLWAYS AND IS TOLERATING FAIR. MORPHINE PROVIDING PAIN RELIEF. DENIES NAUSEA. RESTING COMFORTABLY. NO NEEDS VOICED. CALL LIGHT WITHIN REACH. FREQUENT OBSERVATION.
[2020-04-04 09:10] VITALS: BP 139/70
--- NOTE | 2020-04-04 11:54 | NUR ---
ASSUMED PT CARE THIS AM. PT VSS, A&OX4. PT PLEASANT, MAKES NEEDS KNOWN TO STAFF. PT AMBULATES TO THE BATHROOM AND AROUND THE UNIT INDEPENDENTLY. PT COMPLAINING OF PAIN IN THE LEFT LOWER QUADRANT OF THE ABDOMEN, PAIN MEDS GIVEN PRIOR TO EATING AND PT ABLE TO EAT MUCH BETTER THAN PREVIOUS SHIFTS. FLUIDS ENCOURAGED. IV PATENT, MEDS INFUSING WELL. SWELLING NOTED IN THE RIGHT FOOT, FOOT REMAINING ELEVATED WHEN IN BED AND IMPROVEMENT NOTED BY NURSE AND PATIENT.
--- NOTE | 2020-04-04 14:20 | NUR ---
ON-GOING ASSESSMENT: CM REVIEWED CHART AND SPOKE WITH PATIENT. AWAITING FURTHER RECS FROM [facility] PENDING CULTURES. PT IS CURRENTLY ON IV MEROPENEM AND VANC. CM DISCUSSED POSSIBLE NEED FOR HOME IV ANBX PENDING RECS/CULTURES. PT IS AGREEABLE TO HAVE HER BENEFITS CHECKED FOR HOME IV ANBX INCASE SHE NEEDS THIS AND HAS NO PREFERENCE OF DME COMPANY. CM SENT REFERRAL TO [facility]. CM SPOKE WITH KATY LONG FROM [facility] WHO REPORTS IF PT NEEDS TO REMAIN ON BOTH IV NABX IT WILL COST HER 403/WEEK FOR MEDICATION AND SUPPLIES. CM CURRENTLY AWAITING FINAL RECS. CM ALSO DISCUSSED LIKELY NEED FOR HH. PT REPORTS NO PREFERENCE OF HOME HEALTH COMPANY. REFERRAL WAS SENT TO [facility]. AWAITING FURTHER INPUT AT THIS TIME.
[2020-04-04 16:50] VITALS: BP 143/80
[2020-04-04 19:12] VITALS: BP 137/77
--- NOTE | 2020-04-05 03:27 | NUR ---
ASSUMED PT CARE AT SHIFT CHANGE. PT IS WALKING IN THE [place]. PT DENIES PAIN AT THE BEGINING OF THE SHIFT. PT LATER COMPLAINS OF ABDOMINAL PAIN AT A 6. I ADMINISTERED HYDROCODONE. PT IS RESTING IN HER ROOM. PT GETS UP TO THE RR UP AD SARAH. PT CALLS OUT APPROPRIATELY. PT HAS A MIDLINE IN HER RIGHT UPPER ARM PATENT AND ANTIBIOTICS RUNNING. PT FEET ELEVATED DUE TO EDEMA IN BILATERAL ANKLES. SWELLING DOWN A LITTLE. HOURLY ROUNDS PERFORMED. WILL CONTINUE TO MONITOR.
[2020-04-05 03:52] VITALS: BP 124/71
[2020-04-05 09:54] VITALS: BP 130/76
[2020-04-05] MEDS ORDERED: AUGMENTIN 875-1 EACH PO (10:40)
[2020-04-05 10:41] VITALS: BP 130/76
--- NOTE | 2020-04-05 10:45 | NUR ---
PT RESTING IN BED ATE BREAKFAST TOOK AM MEDS. HAS IV ABT. HAS MIDLINE TO UPPER RIGHT ARM. ROOM AIR DURING DAY O2 PRN AT NIGHT. PT STATES NO PAIN AT PRESENT.
[2020-04-05 10:55] VITALS: BP 130/76
--- NOTE | 2020-04-05 12:33 | NUR ---
ON-GOING ASSESSMENT: CM REVIEWED CHART AND SPOKE WITH ATTENDING WHO REPORTS PATIENT IS DISCHARGING HOME TODAY WITH HOME HEALTH AND DOES NOT REQUIRE IV ANBX OR OXYGEN. SAT EXERCISE TEST WAS COMPLETED AND PT IS NO LONGER REQUIRING OXYGEN. [facility] HAS ACCEPTED PT. CM FAXED D/C ORDERS TO [facility]. CASE CLOSED.
[2020-04-05 13:19] VITALS: BP 130/76
--- NOTE | 2020-04-05 13:39 | NUR ---
DISCHARGE PAPERS REVIEWED WITH PT SIGNED AND COPY IN CHART. IV ACSESS DCD. ALL BELONGINGS PACKED AND SENT WITH PATIENT. PT W/O PAIN OR RESP DISTRESS AT THE PRESENT TIME. HERE TO TAKE PATIENT HOME.
--- NOTE | 2020-04-05 13:42 | NUR ---
RX GIVEN TO PATIENT FOR PRN PAIN MED AND PO ABT CALLED TO PATIENTS PHARMACY.
== END 2020-04-05 15:46 | disposition home health service (06) | DRG 417 ==
LOC: ER 18:50 → 4S 22:01 → EROBS 22:01 → 4S 03-24 01:44
PROVIDERS: Emergency Medicine; Hospitalist; Nurse Practitioner; Nurse Practitioner Family; Specialist; ADMIT Hospitalist; ATTEND Hospitalist
DX: K85.10 Biliary acute pancreatitis without necrosis or infection (principal); N17.0 Acute kidney failure with tubular necrosis; J96.01 Acute respiratory failure with hypoxia; K80.42 Calculus of bile duct with acute cholecystitis without obstruction; K86.3 Pseudocyst of pancreas; Z20.828 Contact with and (suspected) exposure to other viral communicable diseases; I10 Essential (primary) hypertension; K21.9 Gastro-esophageal reflux disease without esophagitis; R74.01 Elevation of levels of liver transaminase levels; D72.829 Elevated white blood cell count, unspecified; E87.6 Hypokalemia; Z79.899 Other long term (current) drug therapy; Z85.41 Personal history of malignant neoplasm of cervix uteri; Z92.21 Personal history of antineoplastic chemotherapy; Z92.3 Personal history of irradiation
CPT/HCPCS: 10102; 27000; 50010; 50101; 50411; 50555; 51489; 52265; 52266; 53307; 53312; 53314; 55245; 56462; 56525; 56526; 62110; 62900; 70005